=== PATIENT | female | born 1980 | race African-American/Black ===

== ENCOUNTER → 2020-01-26 | Outpatient (CLI) | payer SELFPAY ==
[2020-01-26 11:00] LABS: A TYPE INFLUENZA AG NEGATIVE (NEGATIVE); B INFLUENZA AG NEGATIVE (NEGATIVE)
== END ==
LOC: RDC 09:37
PROVIDERS: ATTEND Registered Nurse
DX: Z20.828 Contact with and (suspected) exposure to other viral communicable diseases (principal)
CPT/HCPCS: 36415; 87070; 87635; 87804; 87880